=== PATIENT | female | born 1970 | race Two or more races ===

== ENCOUNTER 2019-05-17 07:30 | Day surgery (SDC) | payer OTHER ==
[~2019-05-17 07:30] MED LIST: ONDANSETRON ODT8 MG PO; PANTOPRAZOLE SO40 MG PO; [UNRECOGNIZED DRUG - OTHER] PO
[2019-05-17] MEDS ORDERED: ULTRAM50 MG PO (12:02)
[2019-05-17] MEDS ORDERED: CIPRO500 MG PO (12:02)
[2019-05-17] MEDS ORDERED: NEURONTIN800 MG PO (12:02)
[2019-05-17] MEDS ORDERED: POLY119PG PO (12:03)
[2019-05-17] MEDS ORDERED: SURFAK240 M1 PO (12:03)
== END 2019-05-17 16:35 | disposition home or self-care (01) ==
LOC: CIR.AMB 07:30
DX: K80.10 Calculus of gallbladder with chronic cholecystitis without obstruction (principal); K42.9 Umbilical hernia without obstruction or gangrene; K43.2 Incisional hernia without obstruction or gangrene

== ENCOUNTER 2019-08-11 04:49 | Emergency (ER) | payer OTHER ==
[~2019-08-11] VITALS: Ht 157.5 cm; Wt 65.8 kg
[~2019-08-11 04:49] MED LIST changes: +CIPRO500 MG PO; +NEURONTIN800 MG PO; +POLY119PG PO; +SURFAK240 M1 PO; +ULTRAM50 MG PO
== END 2019-08-11 10:20 | disposition home or self-care (01) ==
LOC: ER 04:49
DX: K21.9 Gastro-esophageal reflux disease without esophagitis (principal)